=== PATIENT | female | born 1955 | race Caucasian/White ===

== ENCOUNTER 2020-02-12 13:18 | Outpatient (NON) | payer OTHER, BC, SELFPAY | END 2020-02-12 13:19 | LOC: ANHLAB 13:20 | PROVIDERS: Visit Provider Specialist | DX: L98.8 Other specified disorders of the skin and subcutaneous tissue (principal) | CPT/HCPCS: 88305 ==

== ENCOUNTER → 2020-05-17 07:16 | Outpatient (CLI) | payer OTHER, BC, SELFPAY ==
[2020-05-17 19:49] LABS: SARS-CoV-2 RNA PCR Negative
== END ==
PROVIDERS: Visit Provider Specialist
DX: Z01.812 Encounter for preprocedural laboratory examination (principal); Z20.822 Contact with and (suspected) exposure to COVID-19
CPT/HCPCS: C9803; U0003; U0005

== ENCOUNTER → 2021-04-07 15:39 | Outpatient (REF) | payer OTHER, BC, SELFPAY | LOC: ANHLAB 15:39 | PROVIDERS: Visit Provider Nurse Practitioner | DX: D24.1 Benign neoplasm of right breast (principal); L91.8 Other hypertrophic disorders of the skin | CPT/HCPCS: 88304; 88305 ==